=== PATIENT | female | born 1985 | race Caucasian/White ===

== ENCOUNTER → 2019-07-14 | Outpatient (CLI) | payer OTHER | LOC: COL.RAD 07-07 08:15 | DX: R10.9 Unspecified abdominal pain (principal); K76.0 Fatty (change of) liver, not elsewhere classified; R63.0 Anorexia; R11.2 Nausea with vomiting, unspecified; K59.00 Constipation, unspecified; R19.7 Diarrhea, unspecified ==

== ENCOUNTER → 2019-08-12 | Outpatient (CLI) | payer OTHER | LOC: COL.RAD 09:35 | DX: R10.11 Right upper quadrant pain (principal); K21.0 Gastro-esophageal reflux disease with esophagitis; K29.70 Gastritis, unspecified, without bleeding; R17 Unspecified jaundice; K63.5 Polyp of colon; A04.8 Other specified bacterial intestinal infections ==